=== PATIENT | male | born 1995 | race Caucasian/White ===

== ENCOUNTER 2022-08-16 17:54 | Emergency (ER) | payer OTHER, BC ==
[2022-08-16] VITALS (8 sets, daily range): BP systolic 124–141; BP diastolic 72–96
[~2022-08-16] VITALS: Ht 175.3 cm; Wt 79.0 kg
[2022-08-16] MEDS ORDERED: PRILOSEC20 MG/CAP PO (18:24)
[2022-08-16] MEDS ORDERED: PREDNISONE10 MG PO (18:25)
[2022-08-16] MEDS ORDERED: AUGMENTIN500TAB PO (18:25)
[2022-08-16 18:43] LABS: HEMATOCRIT 43.4 % (39.0-50.0); IMMATURE GRANULOCYTES 0.4 % (0.0-5.0); MEAN CELL VOLUME 85.9 fL CALC (80.0-100.0); MEAN CORPUSCULAR HGB 29.7 pG CALC (26.0-32.0); MEAN CORPUSCULAR HGB CONC 34.6 g/dL CAL (32.0-36.0); NEUT# 7.02 thou/uL (1.82-7.42); RED BLOOD COUNT 5.05 mill/uL (4.70-6.10); RED CELL DISTRI WIDTH 12.3 % (11.5-15.5)
[2022-08-16 18:49] LABS: ALBUMIN 4.6 g/dL (3.2-5.0); ALKALINE PHOSPHATASE 106 u/l (38-126); ANION GAP 16 (6-22 (CALC)); BILIRUBIN, TOTAL 0.3 mg/dL (0.0-1.4); BUN 16 mg/dL (9-20); BUN/CREATININE RATIO 20 (12-20 (CALC)); CARBON DIOXIDE 23 mmol/l (22-30); CHLORIDE 101 mmol/l (95-108); CPK 99 u/l (52-200); CREATININE 0.8 mg/dL (0.7-1.3); GFR FOR AFR.AMER. > 60 ML/MIN (>=60 (CALC)); GFR OTHER RACES > 60 ML/MIN (>=60 (CALC)); POTASSIUM 3.2 mmol/l (3.5-5.1); SGOT/AST 41 u/l (17-59); SODIUM 137 mmol/l (137-146); TOTAL PROTEIN 8.3 g/dL (6.3-8.2)
== END 2022-08-16 19:57 | disposition home or self-care (01) | DRG 641 ==
LOC: ED 17:54
PROVIDERS: Emergency Medicine
DX: E87.6 Hypokalemia (principal); R55 Syncope and collapse